=== PATIENT | female | born 1975 | race Caucasian/White ===

== ENCOUNTER 2016-08-13 10:27 | Emergency (ER) | payer OTHER | END 2016-08-13 10:39 | disposition home or self-care (01) | LOC: ED 10:27 | DX: T18.9XXA Foreign body of alimentary tract, part unspecified, initial encounter (principal); X58.XXXA Exposure to other specified factors, initial encounter; Y92.9 Unspecified place or not applicable ==

== ENCOUNTER 2016-08-14 06:51 | Day surgery (SDC) | payer OTHER ==
[~2016-08-14 06:51] MED LIST: FENTANYL 250 MCG/5 ML AMP IV PRN; IV START KIT ONE; LACTATED RINGERS 1,000 ML IV SCH; LIDOCAINE Viscous 2% 15 ML UDCUP PO PRN; MIDAZOLAM HCL 5 MG/5 ML VIAL IV PRN
[2016-08-14] MEDS ORDERED: MIDAZOLAM HCL 5 MG/5 ML VIAL ONE (07:44)
[2016-08-14] MEDS ORDERED: FENTANYL 100 MCG/2 ML VIAL ONE ×2 (07:44→07:45)
[2016-08-14] MEDS ORDERED: LIDOCAINE Viscous 2% 15 ML UDCUP ONE (07:45)
[2016-08-14] MEDS ORDERED: PROPOFOL 20 ML IV ONE (08:18)
[2016-08-14 12:40] LABS: HELICOBACTER PYLORII DETECTION NEGATIVE (NEGATIVE)
--- NOTE | 2016-08-16 13:20 | SURGPATH ---
[facility] [address] [place] [id number] Patient Name: NADINE JOHNSON MR#: [id number] : 1975 Gender: F Specimen #: [id number] Collected: 08/14/2016 Received: 08/15/2016 Reported: 08/16/2016 Submitting Phys: BRIGID DOHERTY Copy To Phys: [facility] FUNMI BORJA Clinical History / Pre-Operative Diagnosis: STATUS POST IMPACTION; RULE OUT GASTRITIS AND ESOPHAGITIS Specimen Source / Surgical Procedure Performed: #1-STOMACH ANTRUM; #2-ESOPHAGEAL BIOPSY AT 36 CM Interpretation: 1. BIOPSY, GASTRIC ANTRUM: - NO SIGNIFICANT PATHOLOGIC ABNORMALITIES IDENTIFIED. 2. ESOPHAGEAL BIOPSY AT 36 CM: - ACTIVE, EROSIVE ESOPHAGITIS WITH INFLAMMATORY EXUDATE. Electronically Signed Out Ruby Juarez M.D. Gross Description: #1 The specimen is received in a formalin filled container labeled with the patient's name and "stomach antrum". Two padron biopsies are 0.3 and 0.4 cm. Totally embedded in cassette #1. #2 The specimen is received in a formalin filled container labeled with the patient's name and "esophageal biopsy at 36 cm". Two hollins biopsies are 0.4 and 0.5 cm. Totally embedded in cassette #2. Lenka Lala Microscopic Description: 1. Sections of the antral biopsy show fragments of benign antral mucosa with no significant pathologic changes. 2. Sections of the esophageal biopsy at 36 cm show fragments of squamous and columnar lined mucosa with an area of active inflammation, erosion and acute inflammatory exudate. No diagnostic viral inclusions are seen on routine staining. A PAS stain with appropriate controls is negative for fungal organisms. There is no evidence of intestinal metaplasia, dysplasia or malignancy. 1: 47462 2: 82051, 53619 K20.8
== END 2016-08-14 08:40 | disposition home or self-care (01) ==
LOC: SDC 06:51
PROVIDERS: ATTEND Internal Medicine Gastroenterology
PROC: 0D748ZZ Dilation of Esophagogastric Junction, Via Natural or Artificial Opening Endoscopic (ICD-10-PCS; principal; 2016-08-14)
PROC: 0DB68ZX Excision of Stomach, Via Natural or Artificial Opening Endoscopic, Diagnostic (ICD-10-PCS; 2016-08-14)
PROC: 0DB48ZX Excision of Esophagogastric Junction, Via Natural or Artificial Opening Endoscopic, Diagnostic (ICD-10-PCS; 2016-08-14)
PROC: 0DB78ZX Excision of Stomach, Pylorus, Via Natural or Artificial Opening Endoscopic, Diagnostic (ICD-10-PCS; 2016-08-14)
DX: K22.2 Esophageal obstruction (principal); K20.8 Other esophagitis; K29.70 Gastritis, unspecified, without bleeding
CPT/HCPCS: 43233; 43239; 87081; J3010 ×2; J2250; A9270; J7120